=== PATIENT | female | born 1935 | race Caucasian/White ===

== ENCOUNTER 2019-03-31 07:50 | Inpatient (IN) ==
[~2019-03-31 07:50] MED LIST: Total Joint Mixture (50 ml) IR ONE
[2019-03-31] MEDS ORDERED: Clindamycin 900 MG/50 ML 900 MG/50 ML IV.SOLN IVPB ONE (08:28)
[2019-03-31] MEDS ORDERED: Albuterol 2.5 MG/3 ML NEBULIZER IH PRN (08:28)
[2019-03-31] MEDS ORDERED: Ringers Solution, Lactated 1,000 ML IVC SCH ×2 (08:30→13:26)
[2019-03-31] MEDS ORDERED: Propofol 500 MG/50 ML INFUS..BTL ONE (09:02)
[2019-03-31] MEDS ORDERED: Dexamethasone 4 MG/ML VIAL ONE (09:03)
[2019-03-31] MEDS ORDERED: Lidocaine -MPF 2% 2 ML VIAL ONE (09:03)
[2019-03-31] MEDS ORDERED: Ondansetron 4 MG/2 ML VIAL ONE (09:03)
[2019-03-31] MEDS ORDERED: *HR* FentaNYL (PF) 100 MCG/2 ML VIAL ONE (09:09)
[2019-03-31] MEDS ORDERED: *HR* OxyCODONE ER (12 HR) 10 MG TABLET PO ONE (09:11)
[2019-03-31] MEDS ORDERED: Celecoxib 200 MG CAPSULE PO ONE (09:11)
[2019-03-31] MEDS ORDERED: Ondansetron 4 MG/2 ML VIAL IVP ONE (09:12)
[2019-03-31] MEDS ORDERED: *HR* OxyCODONE Immed Rel 5 MG TABLET PO PRN (09:12)
[2019-03-31] MEDS ORDERED: *HR* HYDROmorphone (PF) 1 MG/ML SYRINGE IVP PRN (09:12)
[2019-03-31] MEDS ORDERED: ROPIVACAINE/PF/NS 0.25% 1 EACH SYRINGE INTRAART ONE (09:27)
[2019-03-31] MEDS ORDERED: Ethanol\\Acetic Acid\\Na Ace\\Ben 1,000 ML IRRIG.SOLN IR ONE (10:05)
[2019-03-31] MEDS ORDERED: Tranexamic Acid 1,000 MG/10 ML VIAL ONE (10:42)
[2019-03-31] MEDS ORDERED: EPHEDrine 50 MG/ML VIAL ONE (11:48)
[2019-03-31 12:40] LABS: Hematocrit 36.2 % (35.3-44.9); Hemoglobin 11.7 g/dL (11.5-15.4)
[2019-03-31] MEDS ORDERED: *HR* Promethazine 25 MG/ML VIAL IVP PRN (13:26)
[2019-03-31] MEDS ORDERED: MOM Conc 10 ML UD.LIQ PO PRN (13:26)
[2019-03-31] MEDS ORDERED: Naloxone 0.4 MG/ML INJ IVP PRN (13:26)
[2019-03-31] MEDS ORDERED: Sennosides 8.6 MG TABLET PO PRN (13:26)
[2019-03-31] MEDS ORDERED: Ondansetron 4 MG/2 ML VIAL IVP PRN (13:26)
[2019-03-31] MEDS: Clindamycin 900 MG/50 ML 900 MG/50 ML IV.SOLN IVPB SCH (17:39)
[2019-03-31] MEDS: Ascorbic Acid 500 MG TABLET PO SCH (17:40)
[2019-03-31] MEDS: Multivit/Ca/Min/Fe/FA 1 TAB TABLET PO SCH (17:40)
[2019-04-01] MEDS: Clindamycin 900 MG/50 ML 900 MG/50 ML IV.SOLN IVPB SCH (00:32)
[2019-04-01] MEDS: HYDROcodone BIT/Homatropine 5 MG TABLET PO PRN ×3 (02:14→23:03)
[2019-04-01 02:26] LABS: Basophils % 0.1 %; Hemoglobin 10.6 g/dL (11.5-15.4); Immature Granulocytes % 0.3 % (0-4); Lymphocytes # 0.5 K/mcL (0.6-4.6); Lymphocytes % 5.4 %; Mean Corpuscular HGB Conc 31.2 g/dL (31.6-35.5); Mean Corpuscular Hemoglobin 31.7 pg (28.0-33.3); Mean Corpuscular Volume 101.8 fL (83.0-100.0); Mean Platelet Volume 10.6 fL (9.4-12.4); Monocytes # 0.3 K/mcL (0.0-1.3); Monocytes % 2.8 %; Neutrophils # 8.1 K/mcL (1.6-8.9); Platelet Count 174 K/mcL (140-400); Red Blood Count 3.34 M/mcL (3.82-4.97); Red Cell Distribution Width 12.3 % (11.5-14.5); Segmented Neutrophils % 91.4 %; White Blood Count 8.9 K/mcL (4.3-11.1)
[2019-04-01 02:40] LABS: BUN/Creatinine Ratio 35 (6-26); Blood Urea Nitrogen 26 mg/dL (8-23); Calcium 8.5 mg/dL (8.6-10.3); Carbon Dioxide 29 mEq/L (23-29); Chloride 99 mEq/L (98-107); Glucose 151 mg/dL (70-105); Osmolality,Calculated 290 (280-300); Potassium 4.3 mEq/L (3.5-5.1); Sodium 136 mEq/L (136-145); eGFR For African Americans > 60 (> 60); eGFR For Non-African Americans > 60 (> 60)
[2019-04-01] MEDS: Multivit/Ca/Min/Fe/FA 1 TAB TABLET PO SCH (08:17)
[2019-04-01] MEDS: Aspirin Enteric Coated 81 MG Tablet PO SCH (08:17)
[2019-04-01] MEDS: Ascorbic Acid 500 MG TABLET PO SCH ×2 (08:18→15:49)
[2019-04-01] MEDS ORDERED: tiZANidine 4 MG TABLET PO PRN (12:17)
[2019-04-01] MEDS: *HR* OxyCODONE Immed Rel 5 MG TABLET PO PRN (20:36)
[2019-04-02] MEDS: *HR* OxyCODONE Immed Rel 5 MG TABLET PO PRN ×3 (01:17→17:28)
[2019-04-02] MEDS: HYDROcodone BIT/Homatropine 5 MG TABLET PO PRN ×2 (04:32→13:06)
[2019-04-02 06:18] LABS: Basophils % 0.4 %; Eosinophils # 0.1 K/mcL (0.0-0.6); Eosinophils % 1.6 %; Hematocrit 36.2 % (35.3-44.9); Hemoglobin 11.6 g/dL (11.5-15.4); Immature Granulocytes % 0.6 % (0-4); Lymphocytes # 1.9 K/mcL (0.6-4.6); Lymphocytes % 22.8 %; Mean Corpuscular Hemoglobin 32.3 pg (28.0-33.3); Mean Corpuscular Volume 100.8 fL (83.0-100.0); Mean Platelet Volume 10.5 fL (9.4-12.4); Monocytes # 0.6 K/mcL (0.0-1.3); Monocytes % 7.5 %; Neutrophils # 5.6 K/mcL (1.6-8.9); Platelet Count 176 K/mcL (140-400); Red Blood Count 3.59 M/mcL (3.82-4.97); Red Cell Distribution Width 12.6 % (11.5-14.5); Segmented Neutrophils % 67.1 %; White Blood Count 8.4 K/mcL (4.3-11.1)
[2019-04-02 06:31] LABS: BUN/Creatinine Ratio 30 (6-26); Blood Urea Nitrogen 22 mg/dL (8-23); Calcium 8.6 mg/dL (8.6-10.3); Carbon Dioxide 32 mEq/L (23-29); Chloride 99 mEq/L (98-107); Glucose 92 mg/dL (70-105); Osmolality,Calculated 289 (280-300); Potassium 3.8 mEq/L (3.5-5.1); Sodium 138 mEq/L (136-145); eGFR For African Americans > 60 (> 60); eGFR For Non-African Americans > 60 (> 60)
[2019-04-02] MEDS: Ascorbic Acid 500 MG TABLET PO SCH ×2 (08:30→15:26)
[2019-04-02] MEDS: Multivit/Ca/Min/Fe/FA 1 TAB TABLET PO SCH (08:30)
[2019-04-02] MEDS: Aspirin Enteric Coated 81 MG Tablet PO SCH (08:30)
[2019-04-03] MEDS: *HR* OxyCODONE Immed Rel 5 MG TABLET PO PRN ×2 (06:26→10:31)
[2019-04-03] MEDS: Aspirin Enteric Coated 81 MG Tablet PO SCH (07:10)
[2019-04-03] MEDS: Multivit/Ca/Min/Fe/FA 1 TAB TABLET PO SCH (07:10)
[2019-04-03] MEDS: Ascorbic Acid 500 MG TABLET PO SCH (07:10)
[2019-04-03 11:42] VITALS: BP 122/66
[2019-04-03] MEDS: HYDROcodone BIT/Homatropine 5 MG TABLET PO PRN (13:31)
== END 2019-04-03 13:30 | DRG 470 ==
LOC: SAMDAY 07:50 → 3NENU 13:08
PROVIDERS: ADMIT Orthopaedic Surgery; ATTEND Orthopaedic Surgery